=== PATIENT | female | born 1990 ===

== ENCOUNTER → 2024-05-29 | Outpatient (REF) | LOC: M EMP 11:23 | PROVIDERS: ATTEND Family Medicine | DX: Z11.52 Encounter for screening for COVID-19 (principal) ==

== ENCOUNTER → 2024-08-22 | Outpatient (REF) | LOC: M EMP 10:42 | PROVIDERS: ATTEND Family Medicine | DX: Z01.89 Encounter for other specified special examinations (principal) ==

== ENCOUNTER → 2024-08-22 | Outpatient (REF) | LOC: M EMP 10:43 | PROVIDERS: ATTEND Family Medicine | DX: Z01.89 Encounter for other specified special examinations (principal) ==